=== PATIENT | female | born 1980 | race Caucasian/White ===

== ENCOUNTER 2019-10-30 17:16 | Observation (INO) ==
[2019-10-30] MEDS ORDERED: 0.9 % Sodium Chloride 1,000 ML IVC ONE ×2 (19:08→19:09)
[2019-10-30] MEDS ORDERED: Prochlorperazine 10 MG/2 ML VIAL IVP STA (19:08)
[2019-10-30] MEDS ORDERED: Morphine Sulfate 2 MG/ML SYRINGE IVP ONE (19:10)
[2019-10-30 19:54] LABS: Basophils # 0.1 K/mcL (0.0-0.2); Basophils % 0.8 %; Eosinophils # 0.1 K/mcL (0.0-0.6); Eosinophils % 1.5 %; Hematocrit 43.6 % (35.3-44.9); Hemoglobin 14.4 g/dL (11.5-15.4); Immature Granulocytes % 0.6 % (0-4); Lymphocytes # 2.6 K/mcL (0.6-4.6); Lymphocytes % 27.7 %; Mean Corpuscular Hemoglobin 30.3 pg (28.0-33.3); Mean Corpuscular Volume 91.6 fL (83.0-100.0); Mean Platelet Volume 9.5 fL (9.4-12.4); Monocytes # 0.5 K/mcL (0.0-1.3); Monocytes % 5.1 %; Platelet Count 302 K/mcL (140-400); Red Blood Count 4.76 M/mcL (3.82-4.97); Red Cell Distribution Width 13.1 % (11.5-14.5); Segmented Neutrophils % 64.3 %; White Blood Count 9.3 K/mcL (4.3-11.1)
[2019-10-30] MEDS ORDERED: *HR* Promethazine 25 MG/ML VIAL IVP ONE (19:58)
[2019-10-30 20:13] LABS: BUN/Creatinine Ratio 8 (6-26); Blood Urea Nitrogen 6 mg/dL (6-20); Calcium 9.2 mg/dL (8.6-10.3); Carbon Dioxide 26 mEq/L (23-29); Chloride 105 mEq/L (98-107); Glucose 82 mg/dL (70-105); Osmolality,Calculated 281 (280-300); Potassium 3.9 mEq/L (3.5-5.1); Sodium 137 mEq/L (136-145); eGFR For African Americans > 60 (> 60); eGFR For Non-African Americans > 60 (> 60)
[2019-10-30] MEDS ORDERED: Hyoscyamine 0.5 MG/ML MLS IVP ONE (20:38)
[2019-10-30 20:47] LABS: Bilirubin,Urine Negative (Negative); Blood,Urine Negative (Negative); Clarity,Urine Cloudy (Clear); Color,Urine Yellow (Yellow); Glucose,Urine (UA) Normal (Normal); Ketones,Urine Negative (Negative); Leukocyte Esterase,Urine Trace (Negative); Nitrite,Urine Negative (Negative); PH,Urine 6.5 pH Units (5.0-8.0); Protein,Urine 30 mg/dL (Neg-Trace); Specific Gravity,Urine 1.017 (1.010-1.025); Urobilinogen,Urine Normal (Normal)
[2019-10-30 20:49] LABS: Bacteria,Urine Moderate per hpf (None-Few); Hyaline Casts,Urine Few per lpf (None-Few); Squamous Epithelial Cell,Urine Many per lpf (None-Few)
[2019-10-30] MEDS ORDERED: Hyoscyamine SL 0.125 MG TAB.SUBL SL ONE (21:00)
[2019-10-30] MEDS: 0.9 % Sodium Chloride 1,000 ML IVC SCH (21:02)
[2019-10-30] MEDS ORDERED: Naloxone 0.4 MG/ML INJ IVP PRN (21:33)
[2019-10-31 00:42] LABS: Basophils # 0.1 K/mcL (0.0-0.2); Basophils % 0.8 %; Eosinophils # 0.2 K/mcL (0.0-0.6); Eosinophils % 2.2 %; Hematocrit 36.9 % (35.3-44.9); Immature Granulocytes % 0.6 % (0-4); Lymphocytes # 2.9 K/mcL (0.6-4.6); Lymphocytes % 36.4 %; Mean Corpuscular HGB Conc 33.1 g/dL (31.6-35.5); Mean Corpuscular Hemoglobin 30.7 pg (28.0-33.3); Mean Corpuscular Volume 92.7 fL (83.0-100.0); Mean Platelet Volume 9.6 fL (9.4-12.4); Monocytes # 0.4 K/mcL (0.0-1.3); Neutrophils # 4.3 K/mcL (1.6-8.9); Platelet Count 243 K/mcL (140-400); Red Blood Count 3.98 M/mcL (3.82-4.97); Red Cell Distribution Width 13.1 % (11.5-14.5); White Blood Count 7.9 K/mcL (4.3-11.1)
[2019-10-31 00:49] LABS: Hemoglobin 12.2 g/dL (11.5-15.4)
[2019-10-31 00:55] LABS: Alanine Aminotransferase 7 Units/L (7-52); Albumin 2.9 g/dL (3.5-5.7); Albumin/Globulin Ratio 1.6 (1.1-2.2); Alkaline Phosphatase 52 Units/L (34-104); Aspartate Amino Transferase 10 Units/L (13-39); BUN/Creatinine Ratio 7 (6-26); Bilirubin,Total 0.4 mg/dL (0.3-1.0); Blood Urea Nitrogen 4 mg/dL (6-20); C-Reactive Protein 7 mg/L (Less than 10); Calcium 7.8 mg/dL (8.6-10.3); Carbon Dioxide 22 mEq/L (23-29); Chloride 114 mEq/L (98-107); Globulin 1.8 g/dL (2.4-3.5); Glucose 80 mg/dL (70-105); Osmolality,Calculated 284 (280-300); Sodium 139 mEq/L (136-145); Total Protein 4.7 g/dL (6.4-8.9); eGFR For African Americans > 60 (> 60); eGFR For Non-African Americans > 60 (> 60)
[2019-10-31] MEDS: 0.9 % Sodium Chloride 1,000 ML IVC SCH (05:53)
[2019-10-31] MEDS: *HR* Promethazine 25 MG/ML VIAL IVP PRN ×2 (05:53→13:33)
[2019-10-31] MEDS ORDERED: Acetaminophen IV 1,000 MG/100 ML INFUS..BTL IVPB ONE (06:20)
[2019-10-31] MEDS ORDERED: Propofol 500 MG/50 ML INFUS..BTL ONE (12:36)
[2019-10-31] MEDS ORDERED: Lidocaine -MPF 2% 2 ML VIAL ONE (12:36)
[2019-10-31 13:33] VITALS: BP 108/65
== END 2019-10-31 16:53 | disposition home or self-care (01) ==
LOC: EMEROOARM 17:16 → 3ANU 17:16 → SUATTDRO 20:43 → 3ANU 21:25
PROVIDERS: ADMIT Internal Medicine; ATTEND Internal Medicine
PROC: ENDOCBX (2019-10-31 13:30)
PROC: ENDOEBX (2019-10-31 13:30)

== ENCOUNTER 2020-06-05 14:02 | Inpatient (IN) ==
[2020-06-05 14:46] LABS: White Blood Count 8.8 K/mcL (4.3-11.1)
[2020-06-05 14:47] LABS: Basophils # 0.1 K/mcL (0.0-0.2); Basophils % 0.8 %; Eosinophils # 0.1 K/mcL (0.0-0.6); Hemoglobin 14.2 g/dL (11.5-15.4); Immature Granulocytes % 0.7 % (0-4); Lymphocytes # 2.3 K/mcL (0.6-4.6); Lymphocytes % 25.5 %; Mean Corpuscular HGB Conc 32.3 g/dL (31.6-35.5); Mean Corpuscular Hemoglobin 30.1 pg (28.0-33.3); Mean Corpuscular Volume 93.2 fL (83.0-100.0); Mean Platelet Volume 8.8 fL (9.4-12.4); Monocytes # 0.4 K/mcL (0.0-1.3); Monocytes % 4.8 %; Neutrophils # 5.9 K/mcL (1.6-8.9); Platelet Count 291 K/mcL (140-400); Red Blood Count 4.72 M/mcL (3.82-4.97); Red Cell Distribution Width 13.6 % (11.5-14.5); Segmented Neutrophils % 67.2 %
[2020-06-05 14:53] LABS: Estimated Average Glucose 103 mg/dl; Hemoglobin A1C 5.2 %
[2020-06-05 15:00] LABS: Bacteria,Urine Few per hpf (None-Few); Bilirubin,Urine Negative (Negative); Blood,Urine Negative (Negative); Clarity,Urine Turbid (Clear); Color,Urine Light-Yellow (Yellow); Glucose,Urine (UA) Normal (Normal); Ketones,Urine 10 mg/dL (Negative); Leukocyte Esterase,Urine Negative (Negative); Mucus,Urine Few per lpf (None-Few); Nitrite,Urine Negative (Negative); Protein,Urine Negative (Neg-Trace); Specific Gravity,Urine 1.015 (1.010-1.025); Squamous Epithelial Cell,Urine Moderate per hpf (None-Few); Urobilinogen,Urine Normal (Normal); WBC,Urine 0-3 per hpf (0-3)
[2020-06-05 15:08] LABS: Acetaminophen < 10 mcg/mL (10-20); BUN/Creatinine Ratio 12 (6-26); Blood Urea Nitrogen 9 mg/dL (6-20); Carbon Dioxide 22 mEq/L (23-29); Chloride 108 mEq/L (98-107); Chol/HDL Ratio 3.7 (0-4.9); Cholesterol 197 mg/dL (< 200); Ethanol < 10 mg/dL (Less than 10); Glucose 95 mg/dL (70-105); HDL Cholesterol 53 mg/dL (40-59); LDL Cholesterol,Calculated 130 mg/dL (< 100); Osmolality,Calculated 282 (280-300); Potassium 3.7 mEq/L (3.5-5.1); Salicylate < 2.5 mg/dL (15.0-30.0); Sodium 137 mEq/L (136-145); Triglycerides 71 mg/dL (< 150); eGFR For African Americans > 60 (> 60); eGFR For Non-African Americans > 60 (> 60)
[2020-06-05 15:12] LABS: Amphetamine Screen,Urine Negative ng/mL (Cutoff=1000); Barbiturate Screen,Urine Negative ng/mL (Cutoff=200); Benzodiazepines Screen,Urine Negative ng/mL (Cutoff=200); Cannabinoid Screen,Urine Positive ng/mL (Cutoff = 50); Cocaine Screen,Urine Negative ng/mL (Cutoff= 300); Opiate Screen,Urine Negative ng/mL (Cutoff=300); Phencyclidine Screen,Urine Negative ng/mL (Cutoff=25)
[2020-06-05] MEDS ORDERED: MOM Conc 10 ML UD.LIQ PO PRN (17:51)
[2020-06-05] MEDS ORDERED: *HR* LORazepam 1 MG TABLET PO PRN (17:51)
[2020-06-05] MEDS ORDERED: Mag Hydrox/Al Hydrox/Simeth 30 ML UDC PO PRN (17:51)
[2020-06-05] MEDS ORDERED: haloperidoL 5 MG TABLET PO PRN (17:51)
[2020-06-05] MEDS ORDERED: Ibuprofen 400 MG TABLET PO PRN (17:51)
[2020-06-05] MEDS ORDERED: *HR* LORazepam 2 MG/ML VIAL IM PRN (17:51)
[2020-06-05] MEDS ORDERED: Haloperidol Lactate 5 MG/ML VIAL IM PRN (17:51)
[2020-06-05] MEDS ORDERED: Rizatriptan Benzoate [Maxalt] 10 MG PO PRN (19:40)
[2020-06-05] MEDS: Gabapentin 300 MG CAPSULE PO SCH (21:00)
[2020-06-05] MEDS: clonazePAM 1 MG TABLET PO PRN (21:00)
[2020-06-06] MEDS ORDERED: Famotidine 20 MG TABLET PO SCH (07:30)
[2020-06-06] MEDS ORDERED: Nicotine 21 MG PATCH.TD24 TD SCH (09:00)
[2020-06-06] MEDS: Nicotine 14 MG PATCH.TD24 TD SCH (09:37)
[2020-06-06] MEDS: Gabapentin 300 MG CAPSULE PO SCH ×3 (09:38→21:02)
[2020-06-06] MEDS: FLUoxetine 20 MG CAPSULE PO SCH (09:38)
[2020-06-06] MEDS: Folic Acid 1 MG TABLET PO SCH (09:38)
[2020-06-06] MEDS: clonazePAM 1 MG TABLET PO PRN ×3 (09:38→21:02)
[2020-06-06] MEDS: hydrOXYzine pamoate 25 MG CAPSULE PO PRN (12:53)
[2020-06-06] MEDS: tiZANidine 4 MG TABLET PO PRN ×2 (15:41→21:02)
[2020-06-06] MEDS ORDERED: ARIPiprazole 2 MG TABLET PO SCH (21:00)
[2020-06-07] MEDS: traZODone 50 MG TABLET PO PRN (02:59)
[2020-06-07] MEDS: Nicotine 14 MG PATCH.TD24 TD SCH (08:19)
[2020-06-07] MEDS: Gabapentin 300 MG CAPSULE PO SCH ×3 (08:21→20:29)
[2020-06-07] MEDS: FLUoxetine 20 MG CAPSULE PO SCH (08:21)
[2020-06-07] MEDS: Folic Acid 1 MG TABLET PO SCH (08:22)
[2020-06-07] MEDS: clonazePAM 1 MG TABLET PO PRN ×3 (08:23→20:30)
[2020-06-07] MEDS: ARIPiprazole 2 MG TABLET PO SCH (11:21)
[2020-06-07] MEDS: tiZANidine 4 MG TABLET PO PRN (20:29)
[2020-06-07] MEDS: hydrOXYzine pamoate 25 MG CAPSULE PO PRN (21:51)
[2020-06-08] MEDS: Nicotine 14 MG PATCH.TD24 TD SCH (08:36)
[2020-06-08] MEDS: Gabapentin 300 MG CAPSULE PO SCH ×3 (08:38→20:59)
[2020-06-08] MEDS: clonazePAM 1 MG TABLET PO PRN ×3 (08:39→21:02)
[2020-06-08] MEDS: ARIPiprazole 2 MG TABLET PO SCH (08:39)
[2020-06-08] MEDS: Folic Acid 1 MG TABLET PO SCH (08:40)
[2020-06-08] MEDS: FLUoxetine 20 MG CAPSULE PO SCH (08:41)
[2020-06-08] MEDS: hydrOXYzine pamoate 25 MG CAPSULE PO PRN ×2 (11:48→22:22)
[2020-06-08] MEDS ORDERED: SUMAtriptan succinate 50 MG TABLET PO PRN (15:35)
[2020-06-08] MEDS: traZODone 50 MG TABLET PO PRN (20:50)
[2020-06-08] MEDS ORDERED: traZODone 50 MG TABLET PO SCH (21:00)
[2020-06-08] MEDS: tiZANidine 4 MG TABLET PO PRN (23:18)
[2020-06-09] MEDS: FLUoxetine 20 MG CAPSULE PO SCH (08:16)
[2020-06-09] MEDS: Nicotine 14 MG PATCH.TD24 TD SCH (08:17)
[2020-06-09] MEDS: Gabapentin 300 MG CAPSULE PO SCH (08:17)
[2020-06-09] MEDS: Folic Acid 1 MG TABLET PO SCH (08:17)
[2020-06-09] MEDS: ARIPiprazole 2 MG TABLET PO SCH (08:17)
[2020-06-09 10:23] VITALS: BP 120/83
[2020-06-09] MEDS: clonazePAM 1 MG TABLET PO PRN (11:30)
[2020-06-10] MEDS ORDERED: ARIPiprazole 2 MG TABLET PO SCH (09:00)
== END 2020-06-09 12:50 | disposition home or self-care (01) | DRG 885 ==
LOC: EMEROOARM 14:02 → 1ANU 17:47
PROVIDERS: ADMIT Psychiatry & Neurology Psychiatry; ATTEND Psychiatry & Neurology Psychiatry